=== PATIENT | male | born 1940 | race Caucasian/White ===

== ENCOUNTER → 2020-12-05 | Outpatient (CLI) | payer OTHER ==
[~2020-12-05] VITALS: Ht 175.3 cm; Wt 45.4 kg
[2020-12-05] VITALS (7 sets, daily range): BP systolic 113–167; BP diastolic 47–77
[~2020-12-05] MED LIST: ASA81BEC PO; C-10001000 MG PO; CRESTOR5 MG PO; DULOXETINE HCL60 MG PO; EMTRICITABINE-1 EACH PO; EMTRICITABINE200 MG PO; FAMOTIDINE 10 M10 MG PO; FOLIC ACID1 MG PO; JULUCA 50-25 M1 EACH PO; LEVO-T75 MCG PO; LORATIDINE 10 M10 M1 PO; MELATONIN3 M1 PO; NEPHRO-VITE RX1 TA1 PO; OLANZAPINE5 M1 PO; PLAVIX 75 MG TA75 MG PO; REMERON15 M2 PO; TAMSULOSIN HCL0.4 MG PO; TRADJENTA5 MG; VALACYCLOVIR500 MG PO
[2020-12-05 12:27] LABS: HEMATOCRIT 32.5 % (42.0-52.0); HEMOGLOBIN 11.1 gm/dL (14.0-18.0); MCHC 34.3 g/dL (28.0-37.0); MCV 110.7 fL (80.0-100.0); RBC 2.94 mil/uL (4.50-6.00); RDW 17.4 % (10.5-14.5); WBC 4.7 thou/uL (4.0-11.0)
[2020-12-05 12:37] LABS: CALCIUM 8.7 mg/dL (8.5-10.1); CREATININE 5.8 mg/dL (0.7-1.3); POTASSIUM 3.5 mmol/L (3.5-5.1)
== END | disposition home or self-care (01) ==
LOC: CATH 08:20
PROVIDERS: ATTEND Nuclear Medicine Nuclear Cardiology
DX: I70.248 Atherosclerosis of native arteries of left leg with ulceration of other part of lower leg (principal); L97.929 Non-pressure chronic ulcer of unspecified part of left lower leg with unspecified severity; I70.1 Atherosclerosis of renal artery; I12.0 Hypertensive chronic kidney disease with stage 5 chronic kidney disease or end stage renal disease; E11.22 Type 2 diabetes mellitus with diabetic chronic kidney disease; N18.6 End stage renal disease; I25.10 Atherosclerotic heart disease of native coronary artery without angina pectoris; E03.9 Hypothyroidism, unspecified; N40.0 Benign prostatic hyperplasia without lower urinary tract symptoms; Z98.890 Other specified postprocedural states; Z79.899 Other long term (current) drug therapy; Z89.611 Acquired absence of right leg above knee; Z79.4 Long term (current) use of insulin; Z88.8 Allergy status to other drugs, medicaments and biological substances; Z91.041 Radiographic dye allergy status